=== PATIENT | male | born 1945 | race Caucasian/White ===

== ENCOUNTER 2019-07-27 05:31 | Inpatient (IN) | payer OTHER ==
[~2019-07-27] VITALS: Ht 172.7 cm; Wt 86.6 kg
[2019-07-27 05:45] LABS: Calcium, Ionized (POC) 1.08 mmol/L (1.10-1.46); Chloride (POC) 104 mmol/L (98-108); Creatinine (POC) 0.8 mg/dL (0.8-1.3); Glucose (ISTAT POC) 180 mg/dL (70-99); Hemoglobin (POC) 13.6 g/dL (13.5-17.5); Potassium (POC) 4.1 mmol/L (3.5-5.5); Sodium (POC) 139 mmol/L (135-148); Total CO2 (POC) 25 mmol/L (21-32)
[2019-07-27 05:50] LABS: BASOPHILS PERCENT AUTO 2 % (0-2); EOSINOPHILS ABSOLUTE AUTO 0.74 K/mm3 (0.00-0.68); EOSINOPHILS PERCENT AUTO 12 % (0-6); Hematocrit 41.2 % (37.0-53.0); Hemoglobin 13.5 g/dL (13.5-17.5); IMMATURE GRAN ABSOLUTE AUTO 0.02 K/mm3 (0.00-0.10); IMMATURE GRAN PERCENT AUTO 0 % (0-1); LYMPHOCYTES ABSOLUTE AUTO 2.62 K/mm3 (0.84-5.20); LYMPHOCYTES PERCENT AUTO 42 % (21-46); MONOCYTES ABSOLUTE AUTO 0.44 K/mm3 (0.16-1.47); MONOCYTES PERCENT AUTO 7 % (4-13); Mean Corpuscular HGB 29.4 pg (26.0-34.0); Mean Corpuscular HGB Conc 32.8 g/dL (31.5-36.5); Mean Corpuscular Volume 90 fL (80-100); Mean Platelet Volume 9.7 fL (9.1-12.4); NEUTROPHILS ABSOLUTE AUTO 2.33 K/mm3 (1.96-9.15); NEUTROPHILS PERCENT AUTO 37 % (41-73); Platelet Count 252 K/mm3 (150-400); RDW Coefficient Variation 11.9 % (11.7-14.2); Red Blood Cell Count 4.59 M/mm3 (4.30-5.90); White Blood Cell Count 6.25 K/mm3 (4.00-11.30)
[2019-07-27 06:04] LABS: Source, Urine Clean Catch
[2019-07-27 06:06] LABS: Bilirubin, Urine Neg (Neg); Blood, Urine Neg (Neg); Glucose Qualitative, Urine 1+ (Neg); Ketones, Urine Neg (Neg); Leukocyte Esterase, Urine Neg (Neg); Nitrite, Urine Neg (Neg); Protein, Urine 1+ (Neg); Urobilinogen, Urine NORM (Normal)
[2019-07-27 06:11] LABS: Troponin I <0.015 ng/mL (0.000-0.040)
[2019-07-27 06:12] LABS: Alanine Aminotransfer (ALT/SGP 20 U/L (12-78); Albumin, Blood 3.2 g/dL (3.4-5.0); Alk Phos 61 U/L (50-136); Anion Gap 7 mmol/L (6-16); Aspartate Aminotrans (AST/SGOT 11 U/L (12-37); Bilirubin, Total 0.3 mg/dL (0.1-1.0); Blood Urea Nitrogen 16 mg/dL (8-24); Bun/Creatinine Ratio 22.8 (12.0-20.0); CO2, Blood 25 mmol/L (21-32); Calcium, Blood 8.3 mg/dL (8.5-10.1); Chloride, Blood 107 mmol/L (98-108); Globulin, Blood 3.3 g/dL (2.2-4.0); Glomerular Filtration Rate >60 (60-); Glucose, Blood 176 mg/dL (70-99); Potassium, Blood 4.1 mmol/L (3.5-5.5); Sodium, Blood 139 mmol/L (136-145); Total Protein, Blood 6.5 g/dL (6.4-8.2)
[2019-07-27 06:14] LABS: Appearance, Urine Clear (Clear); Color, Urine Yellow (P-Yellow)
[2019-07-27 06:14] LABS: Ethanol (Alcohol), Blood, Med <3 mg/dL
[2019-07-27 06:25] LABS: U Amphetamine Screen Not Detected; U Barbituate Screen Not Detected; U Benzodiazapine Screen Not Detected; U Buprenorphine Screen Not Detected; U Cannabinoids Screen Not Detected; U Cocaine Screen Not Detected; U Methadone Screen Not Detected; U Methamphetamine Screen Not Detected; U Opiates Screen Not Detected; U Oxycodone Screen Not Detected; U Phencyclidine Screen Not Detected; U Propoxyphene Screen Not Detected
--- NOTE | 2019-07-27 11:00 | NUR ---
ASSUMED CARE NOTE: ASSUMED CARE OF PT @ 1050, RECEIVED REPORT FROM [facility] N[facility]SE. PT ARRIVED TO UNIT VIA STRETCHER, SLIDER WAS USED TO TRANSFER PT TO HOSPITAL BED. PT IS ON RA WITH SPO2 ABOVE 95%, NO SOB NOTED. PT DENIES ANY PAIN AT THIS TIME. PT IS C/O DIZZINESS AND IS UNABLE TO OPEN EYES, PT STATES " I FEEL LIKE I AM FLOATING", NYSTAGMUS PRESENT BILAT. PT DENIES NAUSEA. PT IS ABLE TO FOLLOW DIRECTIONS. PT IS A/OX4 AND IS ABLE TO RECALL RECENT AND REMOTE EVENTS. PT WAS ABLE TO PASS BEDSIDE SWALLOW EVAL WITHOUT DIFFICULTIES. NO S/S OF ASPIRATION NOTED. PT IS UNCOORDINATED WITH MOVEMENTS IN ALL EXTREMITIES. PT STATES THAT HE FEELS NUMBNESS ABD TINGILING ON THE ENTIRE RIGHT SIDE. PT IS C/O URINARY RETENTION, WILL INSERT PATTON SHORLTY. PT IS IN NSR WITH HR IN THE 70'S. WILL CONTINUE TO MONITOR PT T/O SHIFT.
[2019-07-27 12:59] LABS: Source, Urine Catheter
[2019-07-27 13:31] LABS: Bilirubin, Urine Neg (Neg); Blood, Urine 1+ (Neg); Glucose Qualitative, Urine 3+ (Neg); Ketones, Urine 2+ (Neg); Leukocyte Esterase, Urine Neg (Neg); Nitrite, Urine Neg (Neg); Protein, Urine 1+ (Neg); Urobilinogen, Urine NORM (Normal)
[2019-07-27 13:56] LABS: Appearance, Urine Clear (Clear); Color, Urine Yellow (P-Yellow); Squamous Epithelial Cells Not Seen /hpf (Few); White Blood Cells, Urine 0-2 /hpf (0-5)
[2019-07-27 13:57] LABS: Bacteria Rare /hpf
--- NOTE | 2019-07-27 18:09 | NUR ---
SHIFT SUMMARY: PT CONTINUES TO BE A&O. RA WITH SPO2 ABOVE 90%, NO SOB NOTED. PT DENIES ANY PAIN. VVS. NSR WITH HR IN THE 90'S. PT C/O N/V , PT MEDICATED PER EMAR. TONGUE DEVIATES TO THE LEFT. SPEECH THERAPIST RECCOMENDED THAT TO GIVE PILLS ONE AT A TIME WILL SMALL SIPS OF WATER. SPEECH THERAPIST WILL ASSESS PT FURTHER TOMMOROW. PT HAS A PATTON THAT IS PATENT AND DRAINING CLEAR LIGHT YELLOW URINE. PT IS ABLE TO MOVE ALL EXTREMITIES, HOWEVER IT IS UNCOORDINATED AND PT STATES HE DOES NOT HAVE FEELING TO HIS ENTIRE RIGHT SIDE. MRI COULD NOT BE PERFORMED DUE TO UNKNOWN TYPE OF CARDIAC STENTS. FEILD IV'S WERE DC'd, 20G IV TO RIGHT FA PLACED. NS @ 100MLS/HR. WILL CONTINUE TO MONITOR UNTIL REPORT IS GIVEN TO ONCOMING SHIFT.
[2019-07-28 03:42] LABS: BASOPHILS ABSOLUTE AUTO 0.06 K/mm3 (0.00-0.23); BASOPHILS PERCENT AUTO 1 % (0-2); EOSINOPHILS ABSOLUTE AUTO 0.08 K/mm3 (0.00-0.68); EOSINOPHILS PERCENT AUTO 1 % (0-6); Hematocrit 40.7 % (37.0-53.0); Hemoglobin 13.7 g/dL (13.5-17.5); IMMATURE GRAN ABSOLUTE AUTO 0.04 K/mm3 (0.00-0.10); IMMATURE GRAN PERCENT AUTO 0 % (0-1); LYMPHOCYTES ABSOLUTE AUTO 2.15 K/mm3 (0.84-5.20); LYMPHOCYTES PERCENT AUTO 21 % (21-46); MONOCYTES ABSOLUTE AUTO 0.69 K/mm3 (0.16-1.47); MONOCYTES PERCENT AUTO 7 % (4-13); Mean Corpuscular HGB 29.9 pg (26.0-34.0); Mean Corpuscular HGB Conc 33.7 g/dL (31.5-36.5); Mean Corpuscular Volume 89 fL (80-100); Mean Platelet Volume 9.7 fL (9.1-12.4); NEUTROPHILS ABSOLUTE AUTO 7.42 K/mm3 (1.96-9.15); NEUTROPHILS PERCENT AUTO 71 % (41-73); Platelet Count 287 K/mm3 (150-400); RDW Coefficient Variation 12.1 % (11.7-14.2); RDW Standard Deviation 39.4 fL (35.1-46.3); Red Blood Cell Count 4.58 M/mm3 (4.30-5.90); White Blood Cell Count 10.44 K/mm3 (4.00-11.30)
[2019-07-28 04:02] LABS: Alanine Aminotransfer (ALT/SGP 22 U/L (12-78); Albumin, Blood 3.2 g/dL (3.4-5.0); Alk Phos 60 U/L (50-136); Anion Gap 6 mmol/L (6-16); Aspartate Aminotrans (AST/SGOT 18 U/L (12-37); Bilirubin, Total 0.5 mg/dL (0.1-1.0); Blood Urea Nitrogen 13 mg/dL (8-24); Bun/Creatinine Ratio 20.9 (12.0-20.0); CO2, Blood 26 mmol/L (21-32); Calcium, Blood 7.7 mg/dL (8.5-10.1); Chloride, Blood 106 mmol/L (98-108); Creatinine, Blood 0.62 mg/dL (0.60-1.20); Globulin, Blood 3.3 g/dL (2.2-4.0); Glomerular Filtration Rate >60 (60-); Glucose, Blood 91 mg/dL (70-99); Potassium, Blood 3.6 mmol/L (3.5-5.5); Sodium, Blood 138 mmol/L (136-145); Total Protein, Blood 6.5 g/dL (6.4-8.2)
--- NOTE | 2019-07-28 05:53 | NUR ---
SHIFT SUMMARY PT SLEEPING IN ROOM COMFORTABLY AT THIS TIME. PT SLEPT WELL T/O NIGHT. DENIED NEEDS. RESP EVEN UNLABORED ON RA W/ SATS >92%. PT NEURO CHECKS IMPROVED T.O NIGHT, PT COONTINUES TO REPORT N/T TO R LEG, BUT MOVEMENT HAS IMPROVED TO BOTH R ARM AND R LEG. DENIED CP OR SOB. BP HAS DECREASED. NS INFUSING IN PIV. PATTON DRAINING CLEAR YELLOW URINE. DENIES OTHER NEEDS. CALL LIGHT IN REACH
--- NOTE | 2019-07-28 11:33 | NUR ---
PT WAS EARLIER GOTTEN UP TO BSC AND THEN TO CHAIR WITH MINIMAL STANDBY ASSISST. PT IS A/O. BILATERAL STRENGTH IS ESSENTIALLY NORMAL, NO PROMATION OR DRIFT, NO TONGUE DEVIATION AND NORAML MOVEMENT, SOME TACTAILE TINGLEING, AND ONLY SL AND IRREGULAR DIZZZINESS. IV NS AT 100ML. PT HAS EATEN THE AM W/O DISTRESS AND DRINKING AND TAKING FOODS WELL. PATTON REMAIN YELLOW AND INTACT.
--- NOTE | 2019-07-28 14:23 | NUR ---
Spiritual care visit conducted. Patient is lying in bed and alert. Patient's , Samra and Real Estate Office Manager Miles are present. I learn about patient's events leading up to his stay in the hospital, I learn about their spiritual journey and about his deep concerns about patient losing his job because of his medical issues. I listen empathically, normalize patient's experience, provide anxiety containment, pastoral certified genetic counselor and prayer. Patient responds well and shows signs of reduced stress. I will continue to remain available to patient and family.
--- NOTE | 2019-07-28 14:47 | NUR ---
MEDICAL RECORDS RELEASE FAXED TO THE [facility]. [phone]. JOSE CHUNG RN CARE MANAGER
--- NOTE | 2019-07-28 17:23 | NUR ---
PT HAS BEEN A/O ALL DAY. CONT TO EXPERIENCE SOME NUMBLESS OF HANDS BUT STRENGHT IS ESSENTIALLY STABLE AM. PT HAS BEEN DOWN AND BACK FOR CT HE WAS NOT A CANDIDATE FOR MRI. PT IVF CONT FFO NS AT 100ML WITH VS AND U.O. NOTED. CONT NSR. TAKING PO YET W/O DISTRESS.
--- NOTE | 2019-07-29 06:51 | NUR ---
a+o, rm air, denies pain, arm still "tingles" at times but no other s/sx of tia noted during shift, stated he was sleeping great just be for being awakened for morning vitals, call light in reach, will continue to monitor and treat until share with pt and day staff
--- NOTE | 2019-07-29 15:44 | NUR ---
Spiritual care visit conducted. Patient is lying in bed and resting but quickly awakens to the sound of his name. Because therapeutic alliance is already established patient shares some of his deep painful losses and his struggles through the years to cope with them. We talk about healthy ways to work through pain and failure. Patient already told me about his isac journey and so we discuss the power of forgiveness and the hope he has anchored in his isac. I listen empathically, hear confession, explore sources of meaning and purpose and provide pastoral certified rehabilitation counselor. Patient responds well and shows signs of catharsis. I will continue to remain available to patient and family.
--- NOTE | 2019-07-29 16:37 | NUR ---
BLADDER TRAINING BEGAN NOW PT REQUESTED PATTON
--- NOTE | 2019-07-29 18:46 | NUR ---
SHIFT NOTE PT HAS AMBULATED WITH STEADY GAIT WITH FWW TODAY. PT REPORTS DIZZINESS WITH AMBULATION. PT A/O X3, ANSWERS QUESTIONS APPORIATTELY BUT DOES SEEM TO INTERMITTENTLY HAD BIZARRE ANSWERS TO QUESTIONS. PT HAS STATED THAT HE WOULD FEEL COMFORTABLE STAYING TONIGHT IN HOSPITAL BUT THEN STS THAT HE IS NOT SURE THAT HE WILL FEEL COMFORTABLE TO GO HOME TOMORROW EITHER HE DOES NOT BELIEVE IS CAPABLE OF CARING FOR HIM. WILL HAVE D/C PLANNERS SEE HIM IN THE AM
--- NOTE | 2019-07-30 06:37 | NUR ---
enjoyed not being awakened q4h for vitals, nothing unusual noted in behavior or attitude, cooperative with care, concerned r/departure and what it would entail (discussed and encouraged conversation with discharge nurse), call light in reach will continue to monitor and treat until share bsr with pt and day shift, saline locked, on rm air
--- NOTE | 2019-07-30 16:07 | NUR ---
TRANSFER TO SURGICAL FLOOR PT TRANSFERRED FROM PCU TO SURGICAL FLOOR TODAY AT 1530 VIA WHEELCHAIR. PT A/O WITH VSS. DENIES SOB, DYSPNEA, DISCOMFORT, OR CHEST PAIN. STATES N/T IN RIGHT SECOND TOE AT BASELINE. SPOUSE AT BEDSIDE AND INVOLVED WITH CARE. PT CURRENTLY WATCHING TV IN BED WITH CALL LIGHT IN HAND.
--- NOTE | 2019-07-30 18:19 | NUR ---
Palliative Care Visit: Pt is alert, oriented, pleasant. Pt reports chronic pain in his feet from neuropathy. He states that he is used to having the pain and he used to get medication for it, however, he has not taken medications for a while. He reports that when he [facility] [place] [facility] [place]. He has a provider, but there has been a pause in his taking his prescribed medications. 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 He states that this event has scared him, due to safety reasons. He states that he is thankful that the event happened so early in the morning before work and not during his work day. He is now concerned that he will lose his license and his job as a result of this. His is his decision maker. He may have an advance directive at the [facility]. Will follow up with a fax to [facility] to see if he has one on file there. No other concerns at this time.
--- NOTE | 2019-07-30 18:52 | NUR ---
Pt may benefit from medication to reduce neuropathic pain, such as gabapentin.
--- NOTE | 2019-07-31 05:26 | NUR ---
SHIFT SUMMARY PATIENT HAS BEEN OUT OF BEEN TO BR AND TO WALK IN THE HALLS. HE USES HIS FWW. HE DID SLEEP FOR APPROXIMATELY 5+ HOURS LAST NIGHT. IS IS ALERT AND AWARE. NO CO PAIN OR DISCOMFORT.
--- NOTE | 2019-07-31 07:05 | NUR ---
recvd report from previous shift FREDI Ortega. pt sleeping in bed, bed in lowest position, bedrails up, call light within reach
--- NOTE | 2019-07-31 08:35 | NUR ---
dr ornelas rounding on pt
[2019-07-31] MEDS ORDERED: CLOP75 PO (09:45)
[2019-07-31] MEDS ORDERED: ATOR40TA PO (09:45)
[2019-07-31] MEDS ORDERED: LEVSOD50 PO (09:53)
--- NOTE | 2019-07-31 12:07 | NUR ---
provided discharge instructions, faxed prescriptions to [facility]. pt and states understanding of instructions. pt transported to awaiting vehicle, pt's transported pt to car. peripheral IV removed WNL
== END 2019-07-31 12:05 | disposition home or self-care (01) | DRG 69 ==
LOC: ER 05:31 → PCU 05:32 → SURS 07-29 15:27 → PCU 07-29 15:27 → SURS 07-30 14:54
PROVIDERS: Emergency Medicine; Nurse Practitioner Acute Care; ADMIT Internal Medicine
DX: G45.9 Transient cerebral ischemic attack, unspecified (principal); G81.91 Hemiplegia, unspecified affecting right dominant side; I67.9 Cerebrovascular disease, unspecified; G46.4 Cerebellar stroke syndrome; I10 Essential (primary) hypertension; I25.10 Atherosclerotic heart disease of native coronary artery without angina pectoris; E03.9 Hypothyroidism, unspecified; E78.5 Hyperlipidemia, unspecified; Z95.5 Presence of coronary angioplasty implant and graft; Z88.0 Allergy status to penicillin; Z87.891 Personal history of nicotine dependence
CPT/HCPCS: 36415; 51702; 70450; 70496; 70498; 71045; 80047; 80053; 81001; 82533; 82550; 83735; 84439; 84443; 84481; 84484; 85014; 85025; 92526; 92610; 93005; 93010; 93306; 93880; 96361; 96374-59; 96375-59; 97116; 97162; 97165; 97530; 97535; 99285-25; G0480; J0780; J1200; J1650; J2765; J3475; J7030; Q9967

== ENCOUNTER 2020-08-21 15:40 | Emergency (ER) | payer OTHER, MEDICARE ==
[~2020-08-21] VITALS: Ht 172.7 cm; Wt 86.2 kg
[~2020-08-21 15:40] MED LIST: ATOR40TA PO; CLOP75 PO; LEVSOD50 PO
[2020-08-21 16:10] LABS: BASOPHILS ABSOLUTE AUTO 0.09 K/mm3 (0.00-0.23); BASOPHILS PERCENT AUTO 2 % (0-2); EOSINOPHILS PERCENT AUTO 3 % (0-6); Hematocrit 48.1 % (37.0-53.0); Hemoglobin 15.4 g/dL (13.5-17.5); IMMATURE GRAN ABSOLUTE AUTO 0.03 K/mm3 (0.00-0.10); IMMATURE GRAN PERCENT AUTO 1 % (0-1); LYMPHOCYTES PERCENT AUTO 17 % (21-46); MONOCYTES ABSOLUTE AUTO 0.25 K/mm3 (0.16-1.47); MONOCYTES PERCENT AUTO 4 % (4-13); Mean Corpuscular HGB 27.3 pg (26.0-34.0); Mean Corpuscular Volume 85 fL (80-100); Mean Platelet Volume 9.4 fL (9.1-12.4); NEUTROPHILS ABSOLUTE AUTO 4.34 K/mm3 (1.96-9.15); NEUTROPHILS PERCENT AUTO 74 % (41-73); Platelet Count 333 K/mm3 (150-400); RDW Standard Deviation 37.9 fL (35.1-46.3); Red Blood Cell Count 5.64 M/mm3 (4.30-5.90); White Blood Cell Count 5.91 K/mm3 (4.00-11.30)
[2020-08-21 16:32] LABS: Ethanol (Alcohol), Blood, Med <3 mg/dL
[2020-08-21 16:33] LABS: Alanine Aminotransfer (ALT/SGP 24 U/L (12-78); Albumin, Blood 3.7 g/dL (3.4-5.0); Albumin/Globulin Ratio 0.9 (0.8-1.8); Alk Phos 101 U/L (50-136); Anion Gap 8 mmol/L (6-16); Aspartate Aminotrans (AST/SGOT 17 U/L (12-37); Bilirubin, Total 0.5 mg/dL (0.1-1.0); Blood Urea Nitrogen 15 mg/dL (8-24); Bun/Creatinine Ratio 21.7 (12.0-20.0); CO2, Blood 24 mmol/L (21-32); Calcium, Blood 8.8 mg/dL (8.5-10.1); Chloride, Blood 107 mmol/L (98-108); Creatinine, Blood 0.69 mg/dL (0.60-1.20); Globulin, Blood 3.9 g/dL (2.2-4.0); Glomerular Filtration Rate >60 (60-); Glucose, Blood 153 mg/dL (70-99); Potassium, Blood 3.9 mmol/L (3.5-5.5); Sodium, Blood 139 mmol/L (136-145); Total Protein, Blood 7.6 g/dL (6.4-8.2)
== END 2020-08-21 21:28 | disposition home or self-care (01) ==
LOC: ER 15:40
PROVIDERS: Physician Assistant
DX: R20.2 Paresthesia of skin (principal); R20.0 Anesthesia of skin; I25.10 Atherosclerotic heart disease of native coronary artery without angina pectoris; I10 Essential (primary) hypertension; E78.5 Hyperlipidemia, unspecified; Z88.1 Allergy status to other antibiotic agents; Z88.0 Allergy status to penicillin; Z79.02 Long term (current) use of antithrombotics/antiplatelets; Z95.5 Presence of coronary angioplasty implant and graft; Z79.899 Other long term (current) drug therapy
CPT/HCPCS: 36415; 70450; 70496; 70498; 80053; 82947; 85025; 93005; 93010; 99285-25; G0480; Q9967

== ENCOUNTER 2020-11-16 10:12 | Inpatient (IN) | payer OTHER ==
[~2020-11-16] VITALS: Ht 175.3 cm; Wt 86.2 kg
[~2020-11-16 10:12] MED LIST changes: +ASPI325 PO; +GABA300 PO
[2020-11-16] MEDS ORDERED: Lisinopril2.5 MG (10:56)
--- NOTE | 2020-11-16 11:17 | NUR ---
COMPLETE NURING NEURO EXAM PERFORMED UPON ARRIVAL AND PATIENT READY FOR PROCEDURE. LABS DRAWN AND SENT TO THE LAB.
[2020-11-16 11:31] LABS: International Normalized Ratio 1.07; Prothrombin Time Results 11.4 Sec (9.7-11.5)
[2020-11-16 11:34] LABS: BASOPHILS ABSOLUTE AUTO 0.09 K/mm3 (0.00-0.23); BASOPHILS PERCENT AUTO 2 % (0-2); EOSINOPHILS ABSOLUTE AUTO 0.75 K/mm3 (0.00-0.68); EOSINOPHILS PERCENT AUTO 13 % (0-6); Hematocrit 43.1 % (37.0-53.0); Hemoglobin 14.7 g/dL (13.5-17.5); IMMATURE GRAN ABSOLUTE AUTO 0.04 K/mm3 (0.00-0.10); IMMATURE GRAN PERCENT AUTO 1 % (0-1); LYMPHOCYTES ABSOLUTE AUTO 1.75 K/mm3 (0.84-5.20); LYMPHOCYTES PERCENT AUTO 30 % (21-46); MONOCYTES ABSOLUTE AUTO 0.44 K/mm3 (0.16-1.47); MONOCYTES PERCENT AUTO 8 % (4-13); Mean Corpuscular HGB 28.1 pg (26.0-34.0); Mean Corpuscular HGB Conc 34.1 g/dL (31.5-36.5); Mean Corpuscular Volume 82 fL (80-100); Mean Platelet Volume 9.8 fL (9.1-12.4); NEUTROPHILS ABSOLUTE AUTO 2.77 K/mm3 (1.96-9.15); NEUTROPHILS PERCENT AUTO 48 % (41-73); Platelet Count 244 K/mm3 (150-400); RDW Coefficient Variation 13.2 % (11.7-14.2); RDW Standard Deviation 39.6 fL (35.1-46.3); Red Blood Cell Count 5.24 M/mm3 (4.30-5.90); White Blood Cell Count 5.84 K/mm3 (4.00-11.30)
[2020-11-16 11:44] LABS: Anion Gap 6 mmol/L (6-16); Blood Urea Nitrogen 9 mg/dL (8-24); Bun/Creatinine Ratio 12.3 (12.0-20.0); CO2, Blood 28 mmol/L (21-32); Calcium, Blood 8.3 mg/dL (8.5-10.1); Chloride, Blood 107 mmol/L (98-108); Creatinine, Blood 0.73 mg/dL (0.60-1.20); Glomerular Filtration Rate >60 (60-); Glucose, Blood 137 mg/dL (70-99); Potassium, Blood 3.5 mmol/L (3.5-5.5); Sodium, Blood 141 mmol/L (136-145)
--- NOTE | 2020-11-16 12:30 | NUR ---
DR. HWANG AT THE BEDSIDE AND SHORT STAY DONE. PATIENT READY FOR PROCEDURE. LABS AND CHART REVIEWED. ALL QUESTIONS ANSWERED.
--- NOTE | 2020-11-16 14:02 | NUR ---
PATIENT RETURNED FROM THE [facility], PLACED ON THE MONITOR. RIGHT GROIN CHECKED. SOFT, NO BLEEDING, NO HEMATOMA. PATIENT IS SLEEPY AND DIAPHORETIC. NIBP 200/91. DENIES NAUSEA. CONTINUE TO MONITOR. SINUS RHYTHM NOTED. RECHECK BP 193/93 AND DIAPHORESIS IS IMPROVING.
--- NOTE | 2020-11-16 14:07 | NUR ---
SBAR RECEIVED FROM FREDI CHAVEZ, POST NEURO CHECK BY NURSING IS UNCHANGED.
--- NOTE | 2020-11-16 14:37 | NUR ---
PATIENT VOIDED PER URINAL 300 CLEAR YELLOW OUTPUT. RIGHT GROIN UNCHANGED. TAKING ICE CHIPS. CONTINUETO MONITOR.
--- NOTE | 2020-11-16 15:07 | NUR ---
OBTAINED ORDER FOR ZOFRAN FOR CONTINUED NAUSEA. ZOFRAN 4 MG IV GIVEN. CONTINUE TO MONITOR. PATIENT PLACED ON BEDPANAND GIVEN URINAL. URINE OUTPUT NOTED.
--- NOTE | 2020-11-16 15:23 | NUR ---
PATIENT REMAINS SOMEWHAT SLEEPY ADN NAUSEATED. BUT NAUSEA IS BETTER SINCE IV ZOFRAN WAS GIVEN.
--- NOTE | 2020-11-16 15:54 | NUR ---
DR. HWANG AT THE BEDSIDE. SECOND DOSE OF ZOFRAM GIVEN 4 MG IV DUE TO CONTINUED NAUSEA.
--- NOTE | 2020-11-16 16:04 | NUR ---
PATIENT BEDREST COMPLETE. ENCOURAGED TO MOVE/TURN/SIT UP ABLE. PATIENT REMAINS NAUSEATED AFTER SECOND DOSE OF ZOFRAN. FULL NEURO CHECKS DONE AND UNCHANGED. ALL POSITIVE. MD AWARE.
--- NOTE | 2020-11-16 16:26 | NUR ---
APPEMPTED TO SIT UP ON THE SIDE OF THE BED. NAUSEA STRONG AND BURPING AND SPITTING UP SALIVA ONLY. HAD TO LAY DOWN IMMEDIATELY, FELT LIKE PASSING OUT. DID NOT LOOSE CONSCIOUSNESS. BACK ON THE BEDPAN (UNABLE TO PASS GAS OR STOOL)
--- NOTE | 2020-11-16 16:36 | NUR ---
OBTAINED ORDER FOR HYDRALAZINE FROM DR. HWANG WITH NIBP SPIKE TO 201/102 WITH TRYING TO SIT UP. GAVE 5 MG HYDRALAZINE IV ORDERED AND CONTINUE TO MONITOR.
--- NOTE | 2020-11-16 16:47 | NUR ---
DR. HWANG ORDERD TO OBTAINED A BED FOR OVERNIGHT OBSERVATION, NURSING TRUCK CLEANER CALLED.
--- NOTE | 2020-11-16 17:02 | NUR ---
SECOND DOSE OF HYDRALAZINE 5 MG IV GIVEN, NIBP STILL 197/105.
--- NOTE | 2020-11-16 17:38 | NUR ---
1719 PATIENT UP TO THE BEDSIDE COMMODE. STILL NAUSEATED. ONLY TOMASA NOTED. BURPING MUCH. OBTAINED PCU #1 FOR ADMISION FOR OBSERVATION. NIBP ELEVATED 226/123 GAVE THIRD DOSE OF HYDRALAZINE 5 MG IV ORDERED.
--- NOTE | 2020-11-16 17:54 | NUR ---
TWO NURSE ASSIST BACK TO THE BED. NO STOOL NOTED, PASSED SOME GAS. VOIDED AGAIN. PATIENT VERY WEAK BUT AROUSABLE. NIBP REMAINS ELEVATED. EGK DONE AND COMPARED TO PREVIOUS EKG.
--- NOTE | 2020-11-16 17:58 | NUR ---
REPORT CALLED TO FREDI GIANG AND PATIENT WILL BE TRANSFERED TO PCU #1
--- NOTE | 2020-11-16 18:38 | NUR ---
BROUGHT TO [facility] FROM [facility]. 6 HOURS POST ANGIO RIGHT GROIN SITE. HAYLEE PATCH IN PLACE, NO BLEEDING OR HEMATOMA NOTED. A/A/OX4 BUT APPEARS SLEEPY. VSS, WILL CONTINUE TO MONITOR AND TREAT UNTIL CHANGE OF SHIFT.
--- NOTE | 2020-11-17 04:42 | NUR ---
SHIFT SUMMARY PT HAD INTRACTABLE NAUSEA AND VOMITING THE FIRST COUPLE HOURS OF SHIFT. PRN ZOFRAN GIVEN WITH LITTLE RELIEF. PRN COMPAZINE GIVEN WITH RELIEF OF VOMITING AND DECREASED NAUSEA T/O THE REST OF SHIFT. PT HAD ABOUT 150ML OF EMISIS TOTAL, LIGHT BROWN/CLEAR IN COLOR. PT TRIED SIPPING SMALL AMOUNT OF WATER AND IMMEDIATELY BEGAN TO VOMIT. ADVISED OF PT CONDTION. PT STATED HIS UPPER GASTRIC AREA HAD A BURNING SENSATION DIFFERENT FROM HEARTBURN. PT REQUESTED TO USE THE BSC SEVERAL TIMES BUT DID NOT HAVE A BM T/O THE SHIFT. PT ALSO STATED HE NEEDED TO URINATE BUT WAS UNABLE TO, BLADDERSCAN SHOWED >750ML. PT WAS THEN ABLE TO VOID SMALL AMOUNTS AT A TIME, ABOUT 200-250ML. PT APPEARED SICK, TIRED, AND WEAK STATING HE FELT VERY ILL. BP HYPERTENSIVE, GAVE PRN HYDRALAZINE. BP 196/98 FOR A HIGH AND A LOW OF 162/85. HR 90-100'S. O2 SATS >95% ON ROOM AIR. R GROIN SITE UNCHANGED T/O SHIFT, NO DISCOLORATION, SWELLING, OR TENDERNESS. NEURO CHESCKS SHOWED NO WEAKNESS OR BILATERAL ABNORMALITIES T/O THE SHIFT.
[2020-11-17 12:15] LABS: Hematocrit 53.6 % (37.0-53.0); Hemoglobin 18.1 g/dL (13.5-17.5); Mean Corpuscular HGB Conc 33.8 g/dL (31.5-36.5); Mean Corpuscular Volume 83 fL (80-100); Mean Platelet Volume 9.5 fL (9.1-12.4); Platelet Count 372 K/mm3 (150-400); RDW Coefficient Variation 13.8 % (11.7-14.2); RDW Standard Deviation 41.4 fL (35.1-46.3); Red Blood Cell Count 6.46 M/mm3 (4.30-5.90); White Blood Cell Count 24.59 K/mm3 (4.00-11.30)
[2020-11-17 12:40] LABS: BAND PERCENT MAN 1 % (0-8); BASOPHILS PERCENT MAN 0 % (0-2); EOSINOPHILS PERCENT MAN 0 % (0-6); LYMPHOCYTES ABSOLUTE MAN 1.47 K/mm3 (0.84-5.20); LYMPHOCYTES PERCENT MAN 6 % (21-46); MONOCYTES ABSOLUTE MAN 1.72 K/mm3 (0.16-1.47); MONOCYTES PERCENT MAN 7 % (4-13); NEUTROPHILS ABSOLUTE MAN 21.39 K/mm3 (1.96-9.15); SEG NEUTROPHILS PERCENT MAN 86 % (41-73); TOTAL CELLS COUNTED 100
[2020-11-17 12:54] LABS: Albumin, Blood 4.3 g/dL (3.4-5.0); Bilirubin, Total 0.6 mg/dL (0.1-1.0); Bun/Creatinine Ratio 10.9 (12.0-20.0); Calcium, Blood 9.7 mg/dL (8.5-10.1); Creatinine, Blood 1.56 mg/dL (0.60-1.20); Globulin, Blood 4.4 g/dL (2.2-4.0); Magnesium, Blood 1.9 mg/dL (1.6-2.4); Potassium, Blood 3.4 mmol/L (3.5-5.5); Thyroid Stimulating Hormone 2.54 uIU/mL (0.360-4.800); Total Protein, Blood 8.7 g/dL (6.4-8.2); Troponin I 0.067 ng/mL (0.000-0.040)
[2020-11-17 13:51] LABS: Base Excess Venous -7.1 mmol/L; PCO2 Venous 41.8 mmHg (38-42); PO2 Venous 32.2 mmHg (38-42)
[2020-11-17 13:52] LABS: pH Blood Venous 7.28 (7.34-7.37)
[2020-11-17 14:39] LABS: Source, Urine Clean Catch
[2020-11-17 15:13] LABS: Appearance, Urine Clear (Clear); Bilirubin, Urine Neg (Neg); Blood, Urine 3+ (Neg); Color, Urine Yellow (P-Yellow); Glucose Qualitative, Urine 3+ (Neg); Ketones, Urine 2+ (Neg); Leukocyte Esterase, Urine Neg (Neg); Nitrite, Urine Neg (Neg); Protein, Urine 3+ (Neg); Urobilinogen, Urine NORM (Normal)
[2020-11-17 15:58] LABS: Red Blood Cells, Urine 0-2 /hpf (0-2)
[2020-11-17 15:59] LABS: Bacteria Few /hpf; Squamous Epithelial Cells Rare /hpf (Few)
--- NOTE | 2020-11-17 17:45 | NUR ---
SHIFT SUMMARY; ASSUMED CARE AT 0700, REPORT FROM AZUCENA. A/A/OX4 THROUGHOUT SHIFT WITH MULTIPLE EPISODES OF DRY HEAVING WITH SLIGHT AMOUNT OF LIQUID EMESIS AT TIMES. MEDICATED WITH NAUSEA MEDS PRN. SKIN COOL AND DIAPHERETIC DURING EPISODES. APPEARS LETHARGIC AND WEAK. HYPERTENSION INTERMITANTLY, MEDICATED PER ORDERS. STATUS CHANGED TO IN PT AND LABS DRAWN. CRITICAL VALUES RECIEVED BY ASPEN RAI. HOSPITALIST NOTIFIED. SEPTIC ORDERS PLACED, PATTON CATH PLACED BY FREDI ANTUNEZ. URINE CLEAR AND STRAW IN COLOR. 2L BOLUS GIVEN FOLLOWED BY IV ANTIBOTICS AND POTASSIUM REPLACEMENT. REMAINS NPO DUE TO NAUSEA AND VOMITING. SECOND IV SITE PLACED IN RAC. REPOSITIONS SELF IN BED NEEDED. WILL CONTINUE TO MONITOR AND TREAT UNTIL CHANGE OF SHIFT.
[2020-11-18 00:55] LABS: BASOPHILS ABSOLUTE AUTO 0.06 K/mm3 (0.00-0.23); BASOPHILS PERCENT AUTO 0 % (0-2); EOSINOPHILS PERCENT AUTO 0 % (0-6); Hematocrit 48.5 % (37.0-53.0); Hemoglobin 16.8 g/dL (13.5-17.5); IMMATURE GRAN ABSOLUTE AUTO 0.16 K/mm3 (0.00-0.10); IMMATURE GRAN PERCENT AUTO 1 % (0-1); LYMPHOCYTES ABSOLUTE AUTO 1.63 K/mm3 (0.84-5.20); LYMPHOCYTES PERCENT AUTO 7 % (21-46); MONOCYTES ABSOLUTE AUTO 1.51 K/mm3 (0.16-1.47); MONOCYTES PERCENT AUTO 7 % (4-13); Mean Corpuscular HGB 28.4 pg (26.0-34.0); Mean Corpuscular HGB Conc 34.6 g/dL (31.5-36.5); Mean Corpuscular Volume 82 fL (80-100); Mean Platelet Volume 9.5 fL (9.1-12.4); NEUTROPHILS PERCENT AUTO 85 % (41-73); Platelet Count 270 K/mm3 (150-400); RDW Coefficient Variation 14.3 % (11.7-14.2); RDW Standard Deviation 42.2 fL (35.1-46.3); Red Blood Cell Count 5.91 M/mm3 (4.30-5.90); White Blood Cell Count 22.36 K/mm3 (4.00-11.30)
[2020-11-18 01:20] LABS: Alanine Aminotransfer (ALT/SGP 29 U/L (12-78); Albumin, Blood 3.5 g/dL (3.4-5.0); Albumin/Globulin Ratio 0.9 (0.8-1.8); Alk Phos 99 U/L (50-136); Anion Gap 10 mmol/L (6-16); Aspartate Aminotrans (AST/SGOT 26 U/L (12-37); Bilirubin, Total 0.6 mg/dL (0.1-1.0); Blood Urea Nitrogen 19 mg/dL (8-24); Bun/Creatinine Ratio 21.7 (12.0-20.0); CO2, Blood 17 mmol/L (21-32); Calcium, Blood 8.7 mg/dL (8.5-10.1); Chloride, Blood 114 mmol/L (98-108); Creatinine, Blood 0.88 mg/dL (0.60-1.20); Globulin, Blood 3.7 g/dL (2.2-4.0); Glomerular Filtration Rate >60 (60-); Glucose, Blood 125 mg/dL (70-99); Potassium, Blood 3.9 mmol/L (3.5-5.5); Sodium, Blood 141 mmol/L (136-145); Total Protein, Blood 7.2 g/dL (6.4-8.2); Vancomycin, Random 14.5 ug/mL
--- NOTE | 2020-11-18 05:40 | NUR ---
SHIFT SUMMARY SINCE LAST NOC SHIFT PT HAS SHOWN IMPROVEMENT. PT HAD A SMALL AMOUNT OF VOMIT AT THE START OF SHIFT AND STATED NAUSEA WAS MUCH BETTER AND WAS NO LONGER NAUSEOUS T/O THE REST OF THE SHIFT. PT ABLE TO SIP SMALL AMOUNTS OF WATER THIS AM W/O VOMITING. BP WAS HYPERTENSIVE, GAVE PRN HYDRALAZINE AND BP DOWN TO 156/86. HR STABLE AROUND 100. O2 SATS >95% ON ROOM AIR, NO SOB. PT SHOWED SOME CONFUSION THIS SHIFT HE THOUGHT HE WAS AT A SCHOOL, SHORTLY AFTER PT WAS ABLE TO CORRECTLY ANSWER HIS LOCATION. SPEECH WAS VERY QUICK MUMBLING THAT WAS DIFFICULT TO UNDERSTAND AT TIMES, THIS IS A CHANGE FROM PREVIOUS NOC SHIFT. PT WAS OTHERWISE ORIENTED, CONFUSION POSSIBLY FROM WAKING UP. R GROIN SITE HEALING, NO CHANGE FROM PREVIOUS NOC SHIFT. PT WAS ABLE TO GET SOME SLEEP THIS SHIFT.
[2020-11-18] MEDS ORDERED: ONDA4ODT MM (13:58)
--- NOTE | 2020-11-18 16:04 | NUR ---
SHIFT NOTE PT'S VANCOMYCIN HAS RAN SLOWLY PT HAS CONTINUOUSLY OCCLUDED IV LINE, 2 ARM BOARDS PLACED WHICH CURRENTLY HAS THE FLUIDS RUNNING WELL. LR WILL BE STARTED ONCE VANCOMYCIN HAS COMPLETED. PT A/O X4, ANSWERING QUESTIONS APPROPRIATELY, ADVANCED TO REGULAR DIET WHICH PRODUCED VOMITTING. TOLERATING FLUIDS WELL. SMALL BM NOTED TODAY. CATH DRAINGING WELL TO GRAVITY
== END 2020-11-18 19:45 | disposition home or self-care (01) | DRG 683 ==
LOC: MHTC 10:12 → PCU 17:27 → MHTC 23:04 → PCU 23:04 → MHTC 11-17 13:09 → PCU 11-17 13:09 → MHTC 11-18 08:40 → PCU 11-18 08:47 → MHTC 11-18 08:47 → PCU 11-18 18:00
PROVIDERS: Nurse Practitioner Acute Care; Radiology Diagnostic Radiology; ADMIT Physician Assistant
PROC: B315YZZ Fluoroscopy of Bilateral Common Carotid Arteries using Other Contrast (ICD-10-PCS; principal; 2020-11-18)
PROC: B31DYZZ Fluoroscopy of Right Vertebral Artery using Other Contrast (ICD-10-PCS; 2020-11-18)
PROC: B312YZZ Fluoroscopy of Left Subclavian Artery using Other Contrast (ICD-10-PCS; 2020-11-18)
DX: N17.9 Acute kidney failure, unspecified (principal); E87.2 Acidosis; R65.10 Systemic inflammatory response syndrome (SIRS) of non-infectious origin without acute organ dysfunction; I65.23 Occlusion and stenosis of bilateral carotid arteries; I10 Essential (primary) hypertension; I25.10 Atherosclerotic heart disease of native coronary artery without angina pectoris; E86.0 Dehydration; E03.9 Hypothyroidism, unspecified; Z86.73 Personal history of transient ischemic attack (TIA), and cerebral infarction without residual deficits; Z95.5 Presence of coronary angioplasty implant and graft; Z88.0 Allergy status to penicillin; Z79.02 Long term (current) use of antithrombotics/antiplatelets; Z79.82 Long term (current) use of aspirin; Z79.899 Other long term (current) drug therapy
CPT/HCPCS: 36215; 36216; 36217; 36223; 36225; 36226; 36415; 51703; 71045; 76770; 80048; 80053; 80202; 81001; 82550; 82803; 83605; 83735; 84443; 84484; 85025; 85610; 87040; 93005; 93010; 99152; 99153; A9270; C1760; C1769; C1887; J0360; J0692; J0780; J1200; J1644; J1650; J2250; J2405; J3010; J3370; J3480; J7030; J7040; J7050; J7120; Q9967

== ENCOUNTER 2022-01-15 12:59 | Emergency (ER) | payer OTHER ==
[~2022-01-15] VITALS: Ht 175.3 cm; Wt 90.7 kg
[~2022-01-15 12:59] MED LIST changes: +Lisinopril2.5 MG; +ONDA4ODT MM
== END 2022-01-15 16:50 | disposition home or self-care (01) ==
LOC: ER 12:59
DX: R04.0 Epistaxis (principal); I10 Essential (primary) hypertension; E78.5 Hyperlipidemia, unspecified; Z79.02 Long term (current) use of antithrombotics/antiplatelets; Z88.0 Allergy status to penicillin; Z79.899 Other long term (current) drug therapy
CPT/HCPCS: A9270

== ENCOUNTER → 2022-01-17 | Outpatient (CLI) | payer OTHER ==
[2022-01-17 17:18] LABS: BASOPHILS ABSOLUTE AUTO 0.09 K/mm3 (0.00-0.23); BASOPHILS PERCENT AUTO 2 % (0-2); EOSINOPHILS ABSOLUTE AUTO 0.44 K/mm3 (0.00-0.68); EOSINOPHILS PERCENT AUTO 8 % (0-6); Hematocrit 42.5 % (37.0-53.0); Hemoglobin 13.7 g/dL (13.5-17.5); IMMATURE GRAN ABSOLUTE AUTO 0.01 K/mm3 (0.00-0.10); IMMATURE GRAN PERCENT AUTO 0 % (0-1); LYMPHOCYTES ABSOLUTE AUTO 1.85 K/mm3 (0.84-5.20); LYMPHOCYTES PERCENT AUTO 35 % (21-46); MONOCYTES ABSOLUTE AUTO 0.33 K/mm3 (0.16-1.47); MONOCYTES PERCENT AUTO 6 % (4-13); Mean Corpuscular HGB Conc 32.2 g/dL (31.5-36.5); Mean Corpuscular Volume 87 fL (80-100); Mean Platelet Volume 9.7 fL (9.1-12.4); NEUTROPHILS ABSOLUTE AUTO 2.62 K/mm3 (1.96-9.15); NEUTROPHILS PERCENT AUTO 49 % (41-73); Platelet Count 326 K/mm3 (150-400); RDW Coefficient Variation 13.2 % (11.7-14.2); RDW Standard Deviation 41.3 fL (35.1-46.3); White Blood Cell Count 5.34 K/mm3 (4.00-11.30)
[2022-01-17 17:33] LABS: Bun/Creatinine Ratio 36.6 (12.0-20.0); Calcium, Blood 9.1 mg/dL (8.5-10.1); Creatinine, Blood 0.71 mg/dL (0.60-1.20); Potassium, Blood 3.7 mmol/L (3.5-5.5); Thyroid Stimulating Hormone 5.9 uIU/mL (0.360-4.800)
== END | disposition home or self-care (01) ==
LOC: LAB SHORT 15:50
PROVIDERS: Student in an Organized Health Care Education/Training Program
DX: E03.9 Hypothyroidism, unspecified (principal); R04.0 Epistaxis; R73.03 Prediabetes
CPT/HCPCS: 80048; 83036; 84443; 85025

== ENCOUNTER 2022-05-19 18:55 | Emergency (ER) | payer OTHER ==
[~2022-05-19] VITALS: Ht 175.3 cm; Wt 86.2 kg
== END 2022-05-19 19:57 | disposition home or self-care (01) ==
LOC: ER 18:55
DX: U07.1 COVID-19 (principal); I10 Essential (primary) hypertension; E78.5 Hyperlipidemia, unspecified; Z79.82 Long term (current) use of aspirin; Z79.899 Other long term (current) drug therapy; Z79.890 Hormone replacement therapy; Z86.73 Personal history of transient ischemic attack (TIA), and cerebral infarction without residual deficits; Z95.5 Presence of coronary angioplasty implant and graft
CPT/HCPCS: 99283; A9270

== ENCOUNTER → 2025-03-18 | Outpatient (CLI) | payer OTHER ==
[2025-03-18 17:35] LABS: BASOPHILS ABSOLUTE AUTO 0.13 K/mm3 (0.00-0.23); BASOPHILS PERCENT AUTO 2 % (0-2); EOSINOPHILS ABSOLUTE AUTO 0.66 K/mm3 (0.00-0.68); EOSINOPHILS PERCENT AUTO 12 % (0-6); Hematocrit 48.0 % (37.0-53.0); Hemoglobin 15.7 g/dL (13.5-17.5); IMMATURE GRAN ABSOLUTE AUTO 0.01 K/mm3 (0.00-0.10); IMMATURE GRAN PERCENT AUTO 0 % (0-1); LYMPHOCYTES ABSOLUTE AUTO 1.65 K/mm3 (0.84-5.20); LYMPHOCYTES PERCENT AUTO 30 % (21-46); MONOCYTES ABSOLUTE AUTO 0.33 K/mm3 (0.16-1.47); MONOCYTES PERCENT AUTO 6 % (4-13); Mean Corpuscular HGB Conc 32.7 g/dL (31.5-36.5); Mean Corpuscular Volume 87 fL (80-100); NEUTROPHILS ABSOLUTE AUTO 2.75 K/mm3 (1.96-9.15); NEUTROPHILS PERCENT AUTO 50 % (41-73); NRBC ABSOLUTE 0.00 K/mm3 (0.00-0.02); NRBC Auto 0.0 /100 WBC (0.0-0.2); Platelet Count 293 K/mm3 (150-400); RDW Coefficient Variation 12.8 % (11.7-14.2); RDW Standard Deviation 39.9 fL (35.1-46.3)
[2025-03-18 18:06] LABS: Alanine Aminotransfer (ALT/SGP 40 U/L (12-78); Albumin, Blood 3.7 g/dL (3.4-5.0); Albumin/Globulin Ratio 1.0 (0.8-1.8); Anion Gap 14 mmol/L (3-11); Aspartate Aminotrans (AST/SGOT 24 U/L (12-37); Bilirubin, Total 0.7 mg/dL (0.1-1.0); Blood Urea Nitrogen 13 mg/dL (8-24); CHOL/HDL RATIO 6.4; CO2, Blood 24 mmol/L (21-32); Calcium, Blood 9.1 mg/dL (8.5-10.1); Chloride, Blood 101 mmol/L (98-108); Cholesterol 219 mg/dL (50-200); Creatinine, Blood 0.79 mg/dL (0.60-1.20); Globulin, Blood 3.7 g/dL (2.2-4.0); Glucose, Blood 142 mg/dL (70-99); HDL Cholesterol 34 mg/dL (>39); LDL/HDL RATIO 3.9; Low Density Lipoprotein Chol 134 mg/dL (0-110); Potassium, Blood 3.6 mmol/L (3.5-5.5); Sodium, Blood 135 mmol/L (136-145); Thyroid Stimulating Hormone 34.100 uIU/mL (0.360-4.800); Total Protein, Blood 7.4 g/dL (6.4-8.2); Triglycerides 256 mg/dL (30-160); Very Low Density Lipoprot Chol 51 mg/dL (6-32)
== END ==
LOC: LAB 14:28 → LAB SHORT 14:28
PROVIDERS: Student in an Organized Health Care Education/Training Program
DX: I65.23 Occlusion and stenosis of bilateral carotid arteries (principal); E03.9 Hypothyroidism, unspecified; E78.2 Mixed hyperlipidemia
CPT/HCPCS: 36415; 80053; 80061; 84443; 85025

== ENCOUNTER → 2025-07-13 | Outpatient (CLI) | payer OTHER | END | disposition home or self-care (01) | LOC: LAB SHORT 18:48 → LAB 18:48 | DX: E03.9 Hypothyroidism, unspecified (principal) | CPT/HCPCS: 84443 ==